=== PATIENT | female | born 1975 | race Caucasian/White ===

== ENCOUNTER → 2017-06-12 | Outpatient (CLI) | payer BC ==
--- NOTE | 2017-06-12 15:55 | RAD ---
Ultrasound kidney 06/12/2017 Indication: Low back pain for 3 months. Comparison: None. Findings: Right kidney measures 10.4 cm in length without collecting system dilatation, abnormal perinephric fluid collection or suspicious solid renal mass. Left kidney is present measuring up to 10.5 cm in length without abnormal perinephric fluid collection, collecting system dilatation or suspicious contour deforming mass. Scans of the partially distended urinary bladder within normal limits. There is a simple appearing left adnexal cystic structure measuring 3.8 x 2.5 x 4.0 cm. Impression: 1. Normal renal sonogram. 2. Left ovarian simple appearing cyst measuring up to 4.0 cm. If the patient is premenopausal, no additional follow-up is necessary.
== END | disposition home or self-care (01) ==
LOC: US 14:46
PROVIDERS: ATTEND Nurse Practitioner Family
DX: M54.5 Low back pain (principal); N83.202 Unspecified ovarian cyst, left side
CPT/HCPCS: 76770